=== PATIENT | male | born 1990 | race American Indian/Alaskan Native ===

== ENCOUNTER 2017-06-25 20:23 | Emergency (ER) | payer OTHER ==
[2017-06-25 20:31] VITALS: BP 109/50; PULSE 70; TEMP 97.8; O2SAT 99
[2017-06-25] MEDS ORDERED: Bacitracin 500 Units/gm Oint Foilpak UD ONE ×2 (20:56→21:35)
--- NOTE | 2017-06-25 21:00 | C.PDOC ---
History Of Present Illness 26yo male, presents to ED for evaluation after he accidentally cut the tip of his left 2nd digit with a knife. Patient denies any weakness or numbness to his finger. He states his last Tetanus was 1 year ago. Patient has no other complaints. Time Seen by Provider: 06/25/17 20:35 Chief Complaint (Nursing): Abnormal Skin Integrity History Per: Patient History/Exam Limitations: no limitations Onset/Duration Of Symptoms: Mins Additional History Per: Patient Past Medical History Reviewed: Historical Data, Nursing Documentation, Vital Signs Vital Signs: Last Vital Signs Temp 97.8 F 06/25/17 20:28 Pulse 70 06/25/17 20:28 Resp 14 06/25/17 20:28 BP 109/50 L 06/25/17 20:28 Pulse Ox 99 06/25/17 21:28 - Medical History PMH: No Chronic Diseases Surgical History: Appendectomy Family History: States: Unknown Family Hx - Social History Hx Alcohol Use: Yes Hx Substance Use: No - Immunization History Hx Tetanus Toxoid Vaccination: Yes Hx Influenza Vaccination: No Hx Pneumococcal Vaccination: No Review Of Systems Skin: Positive for: Other (laceration to tip of left 2nd digit) Physical Exam - Physical Exam Appears: Non-toxic Skin: Normal Color Extremity: Normal ROM, Capillary Refill (normal capillary refill of left 2nd digit), No Deformity, No Swelling, Other (partially avulsed skin at left 2nd fingertip, minimal active bleeding.) Neurological/Psych: Oriented x3, Normal Motor, Normal Sensation ED Course And Treatment O2 Sat by Pulse Oximetry: 99 (RA) Pulse Ox Interpretation: Normal Procedure: Wound Repair - Time Out Time Out: Patient ID confirmed - Consent Obtained Consent obtained: Verbal - Performed by Performed by: Mid-level Provider - Indications Indication(s):: Laceration - Location Finger:: Left, Index Depth:: Epidermis (avulsion/thin flap laceration) - Patient tolerated procedure Patient Tolerated Procedure:: Well (Wound cleaned, skin flap debrided, bacitracin and pressure dressing applied.) Medical Decision Making Medical Decision Making: Plan: -- Wound to be cleaned and dressed, see procedure note. Patient to be discharged home with wound care instructions. Disposition - Disposition Referrals: [facility] [Outside] Disposition: HOME/ ROUTINE Disposition Time: 21:41 Condition: STABLE Additional Instructions: Keep wound dry for 2 days Apply bacitracin to area cover wound when outside wound check by PMD in 2 days Return to ER if worse Instructions: Skin Avulsion (ED) Forms: [employer] (Sami) - Clinical Impression Clinical Impression: Avulsion of skin of finger - PA / [employer] / Resident Statement MD/DO has reviewed & agrees with the documentation as recorded. - Scribe Statement The provider has reviewed the documentation as recorded by the Caleb Dillard Provider Attestation: All medical record entries made by the Caleb were at my direction and personally dictated by me. I have reviewed the chart and agree that the record accurately reflects my personal performance of the history, physical exam, medical decision making, and the department course for this patient. I have also personally directed, reviewed, and agree with the discharge instructions and disposition.
[2017-06-25 21:53] VITALS: RESP 20
== END 2017-06-25 21:50 | disposition home or self-care (01) ==
LOC: C.ER 20:23
DX: S61.201A Unspecified open wound of left index finger without damage to nail, initial encounter (principal); W26.0XXA Contact with knife, initial encounter